=== PATIENT | male | born 1960 | race African-American/Black ===

== ENCOUNTER 2018-04-15 20:15 | Emergency (ER) | payer OTHER ==
[~2018-04-15] VITALS: Ht 167.6 cm; Wt 74.8 kg
[2018-04-15 21:29] LABS: POTASSIUM 3.8 mmol/L (3.6-5.2)
[2018-04-15 22:57] VITALS: BP 92/72; TEMP 98.5
== END 2018-04-15 23:03 | disposition home or self-care (01) ==
LOC: ED 20:15
PROVIDERS: Internal Medicine
DX: R10.13 Epigastric pain (principal); R11.0 Nausea; F19.10 Other psychoactive substance abuse, uncomplicated
CPT/HCPCS: 36415; 74022; 80053; 80307; 80320; 81000; 82150; 83690; 93005; 96374; 99284; J2405

== ENCOUNTER 2019-11-25 09:42 | Outpatient (CLI) | payer OTHER | END 2019-11-25 20:37 | disposition home or self-care (01) | LOC: RAD 09:42 | DX: M54.2 Cervicalgia (principal) ==

== ENCOUNTER 2020-12-05 08:31 | Outpatient (CLI) | payer OTHER ==
[~2020-12-05] VITALS: Ht 165.1 cm; Wt 82.1 kg
== END 2020-12-05 20:34 | disposition home or self-care (01) ==
LOC: INF 08:31
PROVIDERS: ATTEND Family Medicine
DX: Z23 Encounter for immunization (principal); U07.1 COVID-19
CPT/HCPCS: 96365; M0244